=== PATIENT | male | born 2005 | race Two or more races ===

== ENCOUNTER 2023-02-11 18:44 | Emergency (ER) | payer MEDICAID, SELFPAY ==
--- NOTE | ~2023-02-11 | XR_ITS ---
EXAMINATION: XR ANKLE, RIGHT CLINICAL INFORMATION: Pain status post fall COMPARISON: None available. TECHNIQUE: AP, lateral, and mortise views of the right ankle. FINDINGS: No fracture. Alignment is anatomic. No erosions. Joint spaces are maintained. Soft tissues are normal. XR/XR ankle RT min 3V IMPRESSION: Normal right ankle.
[2023-02-11 18:47] VITALS: BP 145/88; PULSE 94; RESP 18; TEMP 37; O2SAT 98; BMI 28.1
--- NOTE | 2023-02-11 18:48 | ED.LOWEXIN ---
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) Type of Injury: inversion Place: street/outdoors Severity: moderate Relieving factors: nothing Exacerbating factors: weight bearing, movement and palpation Context: other (s/p twist injury) Associated symptoms: swelling and able to partially bear weight Other symptoms: none Treatments prior to arrival: cold therapy Related Data Previous Rx's Medication Instructions Recorded acetaminophen 325 mg tablet 975 mg PO Q6H PRN fever or pain 02/11/23 (Tylenol) #14 tabs ibuprofen 800 mg tablet 800 mg PO Q8H PRN pain #14 tabs 02/11/23 Allergies Allergy/AdvReac Type Severity Reaction Status Date / Time No Known Allergies Allergy Verified 02/11/23 18:51 Review of Systems Review of Systems: Constitutional : No Weight loss, No Fever, No Chills, No Night Sweats, No Fatigue, No Malaise ENT/Mouth : No Hearing loss, No Ear Pain, No Nasal Congestion, No Sinus Pain, No Hoarseness, No sore throat, No Rhinorrhea, No Swallowing Difficulty Eyes: No Eye Pain, No Swelling, No Redness, No Foreign Body, No Discharge, No Vision Changes Cardiovascular : No Chest Pain, No SOB, No Dyspnea on Exertion, No Orthopnea, No Edema, No Palpitations Respiratory : No Cough, No Sputum, No Wheezing, No Smoke Exposure, No Dyspnea Gastrointestinal : No Nausea, No Vomiting, No Diarrhea, No Constipation, No abdominal Pain, No Hematochezia, No Melena Genitourinary : no irregular bleeding, No Dysuria, No Urinary Frequency, No Hematuria, No Urinary Incontinence, No Urgency, No Flank Pain, No Urinary Flow Changes, No Hesitancy Musculoskeletal : +right ankle joint pain/swelling, No Myalgias Skin : No Skin Lesions, No rash Neuro : No Weakness, No Numbness, No Paresthesias, No Loss of Consciousness, No Dizziness, No Headache Psych : No Anxiety/Panic, No Depression, No SI/HI/AH/VH, No Social Issues, Heme/Lymph: No Bruising, No Bleeding,No Lymphadenopathy Endocrine : No Polyuria, No Polydipsia, No Temperature Intolerance Yes all other systems are reviewed and are negative [facility] Past Medical History Attestation statement: The following information was validated with the patient. Source: old records reviewed, obtained from family and nursing notes reviewed Social History Social History Advance Directives: No Advance Directives Information Provided: Yes Physical Exam Vital Signs: Vital Signs: Last Vital Signs Temp 98.6 F 02/11/23 18:47 Pulse 94 02/11/23 18:47 Resp 18 02/11/23 18:47 BP 145/88 H 02/11/23 18:47 Pulse Ox 98 02/11/23 18:47 O2 Del Method Room Air 02/11/23 18:47 BMI result Body Mass Index 28.1 Vital signs reviewed. Blood pressure normal. Pulse normal. Respiration normal. Oxygen normal. Temperature normal. Appearance: Alert. Oriented X3. No acute distress. Head: Normal external exam. Normocephalic. Atraumatic. Eyes: PERRLA. EOMI. Conjunctiva and sclera normal. Eyelids normal. ENT: EAC normal. TM's Normal. Pharynx normal. Uvula midline. Moist mucous membranes. No lesions/ulcerations or masses noted on the tongue. Normal voice. No trismus noted. No drooling noted. No muffled voice noted. Neck: Normal inspection. Neck supple. FROM. No adenopathy. Thyroid Normal. No meningeal signs. CVS: Normal heart rate and rhythm. Heart sound normal. Pulses normal throughout. No murmurs/rales/gallops. Respiratory: No respiratory distress. Painless inspiration. Breath sounds normal. No wheezes/rales/rhonchi noted. Chest nontender. No accessory muscle usage noted or decreased air movement noted. Abdomen: Soft and nontender. Back: Full range of motion noted. Nontender. Skin: Skin warm and dry. Normal skin color. Normal skin turgor. No rashes/lesions/lacerations noted. Extremities: to right ankle at the lateral aspect and anterior proximal aspect of the right foot patient has soft tissue swelling and tenderness to palpation. No obvious ligamentous or tendon injury noted. Negative Spence test. Achilles tendon is intact not ruptured. No lower extremity edema or calf tenderness noted. Otherwise all other Extremities exhibit normal range of motion and nontender. Neuro: Oriented X 3. No motor deficit. No sensory deficit. Reflexes normal. Normal steady gait. No focal neuro deficits noted. CN's II-XII intact bilaterally? Vascular: + radial pulses. Normal cap refill. No cyanosis noted to upper extremity nails Course Course Course Narrative: This is an RME: Additional HPI, ROS, PE not included below will be deferred to primary provider. Patient is a 17-year-old male who presents emergency department for evaluation of R ankle injury while playing basketball. fell landing with internal rotation of foot. Denies any popping. Unable to put weight on the foot. Denies numbness or tingling. Plan; XR Reevaluation(s) Reevaluation #1: Assessment: Patient able to bear weight on affected ankle well. Pt c likely sprain, but getting XR to r/o fx. Not c/w base 5th MT fx; No achilles rupture. Not a [place] fx. No evidence of vascular injury. If imaging negative for fracture will provide julita wrap, air cast and crutches for support. Will educate patient on proper crutch walking. Advised to rest, ice and elevate ankle, take motrin for pain. Discussed that sprains take time to heal, however if sx change or worsen - follow up with PCP or ortho for follow-up. Return precautions advised. Patient understands and agrees with plan. Time: 20:39 Medications Administered Discontinued Medications Generic Name Dose Route Start Last Admin Trade Name Eberq PRN Reason Stop Dose Admin Ibuprofen 800 mg 02/11/23 20:34 02/11/23 20:41 Ibuprofen 800 Mg Tablet PO 02/11/23 20:35 800 mg ONCE ONE Administration Medical Decision Making Medical Decision Making MDM Narrative: see course Differential Diagnosis Differential Diagnoses: The differential diagnosis associated with the presentation includes see course Independent Interpretation I performed an independent interpretation of an: Plain X-Ray Interpretation: x-ray of right ankle reviewed by myself this is my independent interpretation agreeable with the radiology report no acute finding Radiology Impression Discussion of test interpretation with radiology: I have reviewed the radiologist's reading. Radiologist Impression: FINDINGS: No fracture. Alignment is anatomic. No erosions. Joint spaces are maintained. Soft tissues are normal.? XR/XR ankle RT min 3V IMPRESSION: Normal right ankle. Independent Historian Clinical information obtained from an independent historian. History obtained from or confirmed by: Parent External Record Review External record reviewed: Inpatient record, Office record, Outpatient record, Prior outpatient labs, Prior outpatient radiology, Primary care record and Outside ED record all prior labs/imaging and notes that are accessible in our system reviewed by myself Prescription Management I considered prescription management with: Pain Medication Social Determinants Patient?s care significantly limited by Social Determinants of Health including: Low income and Other Social Determinant of Health Discharge Plan Discharge Clinical Impression: Ankle sprain and strain Patient Disposition: Home, Self-Care Instructions: Ankle Sprain (DC), Crutch Instructions (ED), R.I.C.E. Treatment (ED) Prescriptions: New ibuprofen 800 mg tablet 800 mg PO Q8H PRN (Reason: pain) Qty: 14 0RF acetaminophen [Tylenol] 325 mg tablet 975 mg PO Q6H PRN (Reason: fever or pain) Qty: 14 0RF Referrals: [facility] [Provider Group] ( if symptoms persist call within 1 week to make a follow-up appointment) [facility] [Primary Care Provider] - 2 days Stand Alone Forms: Work/School Release Interventions: ED Discharge Assessment Last Done: 02/11/23 20:59 Discharge Date/Time: 02/11/23 21:00
[2023-02-11] MEDS: Ibuprofen 800 MG TABLET PO (20:41)
== END 2023-02-11 21:00 | disposition home or self-care (01) ==
PROVIDERS: Emergency Provider Emergency Medicine
DX: S93.401A Sprain of unspecified ligament of right ankle, initial encounter (principal); S96.911A Strain of unspecified muscle and tendon at ankle and foot level, right foot, initial encounter; X50.1XXA Overexertion from prolonged static or awkward postures, initial encounter; Y93.67 Activity, basketball; Y92.310 Basketball court as the place of occurrence of the external cause; Y99.9 Unspecified external cause status
CPT/HCPCS: 73610; 99283; 99284